=== PATIENT | male | born 1985 | race Caucasian/White ===

== ENCOUNTER → 2025-01-18 15:35 | Outpatient (BNVA) | payer MEDICAID, SELFPAY | PROVIDERS: PCP Emergency Medicine; Visit Provider Internal Medicine Cardiovascular Disease | DX: R07.9 Chest pain, unspecified (principal); R93.1 Abnormal findings on diagnostic imaging of heart and coronary circulation | CPT/HCPCS: 93005 ==

== ENCOUNTER 2025-02-05 11:28 | Outpatient (CLI) | payer MEDICAID, SELFPAY ==
--- NOTE | 2025-02-05 10:32 | ECG_ITS ---
[employer] Test Date: 2025-02-05 Pat Name: Kalen Dong Department: Room: Gender: Male Ward Service Supervisor: : 1985 Requested By: Edil Ford Order Number: [id number] Jocelyn MD: Nelly Ruff M.D. Interpretive Statements Lung unchanged pre/post procedure; Intraprocedure shortess of breath; Symptoms resoled by discharge PROCEDURE: At the baseline, the patient's blood pressure was with a heart rate of. The baseline electrocardiogram showed normal sinus rhythm with normal ST-Ts. Incomplete right bundle branch block pattern. Minimal right axis deviation. The patient exercised for 9 minutes and 37 seconds on a standard Neftali protocol. Patient attained a maximum heart rate of 171 beats per minute(94% of the maximum predicted heart rate) with a blood pressure at the peak exercise of 151/75 mm Hg. The EKG at the peak exercise revealed no significant changes. Patient did not have any chest pain or any significant cardiac arrhythmias with the exercise During the recovery phase, there were no new changes. Blood pressure at the end of the recovery phase was 128/80 mm Hg with a heart rate of 104 per minute. CONCLUSION: 1. Normal EKG response to treadmill exercise 2. No exercise-induced chest pain or cardiac arrhythmia 3. Good exercise tolerance, attained a maximum of 13.5 METs Electronically Signed On 02-07-2025 23:05:32 CDT by Nelly Ruff M.[email or web address]
[2025-02-05 12:03] VITALS: BMI 20.3
[2025-02-05 12:30] VITALS: BP 128/80; PULSE 102
== END 2025-02-05 11:29 | disposition home or self-care (01) ==
PROVIDERS: PCP Emergency Medicine; Visit Provider Internal Medicine Cardiovascular Disease
DX: R07.9 Chest pain, unspecified (principal); R06.02 Shortness of breath
CPT/HCPCS: 93017